=== PATIENT | male | born 1935 | race Caucasian/White ===

== ENCOUNTER 2020-11-06 10:44 | Outpatient (CLI) | payer MEDICARE ==
[2020-11-07 01:01] LABS: SARS-CoV-2 PCR by NAA Not Detected (NotDetected)
== END 2020-11-06 10:45 | disposition home or self-care (01) ==
LOC: LABBT 10:44
PROVIDERS: ATTEND Internal Medicine Cardiovascular Disease
DX: Z01.812 Encounter for preprocedural laboratory examination (principal); Z20.822 Contact with and (suspected) exposure to COVID-19
CPT/HCPCS: U0003; U0005

== ENCOUNTER 2020-11-08 06:14 | Day surgery (SDC) | payer MEDICARE ==
[2020-11-07 11:55] VITALS: BMI 28.7
[2020-11-08] MEDS ORDERED: PROPOFOL 200 MG/20 ML VIAL ONE (08:17)
[2020-11-08] MEDS ORDERED: Lidocaine 1% PF 5 ML VIAL ONE (08:17)
== END 2020-11-08 09:45 | disposition home or self-care (01) ==
LOC: SDC 06:14
PROVIDERS: ATTEND Internal Medicine Gastroenterology
PROC: 0DB38ZX Excision of Lower Esophagus, Via Natural or Artificial Opening Endoscopic, Diagnostic (ICD-10-PCS; principal; 2020-11-08)
PROC: 0DJD8ZZ Inspection of Lower Intestinal Tract, Via Natural or Artificial Opening Endoscopic (ICD-10-PCS; 2020-11-08)
DX: R19.5 Other fecal abnormalities (principal); D64.9 Anemia, unspecified; K44.9 Diaphragmatic hernia without obstruction or gangrene; K57.30 Diverticulosis of large intestine without perforation or abscess without bleeding; K64.8 Other hemorrhoids; T70.29XA Other effects of high altitude, initial encounter; M19.90 Unspecified osteoarthritis, unspecified site; I10 Essential (primary) hypertension; N28.9 Disorder of kidney and ureter, unspecified; E78.00 Pure hypercholesterolemia, unspecified; Z86.010 Personal history of colon polyps; Z91.041 Radiographic dye allergy status; Z79.899 Other long term (current) drug therapy; Z95.5 Presence of coronary angioplasty implant and graft; Z86.16 Personal history of COVID-19; Z87.19 Personal history of other diseases of the digestive system; X58.XXXA Exposure to other specified factors, initial encounter
CPT/HCPCS: 43239; G0121; 88305; J2704

== ENCOUNTER 2021-04-22 08:25 | Outpatient (CLI) | payer MEDICARE ==
[2021-04-22] MEDS ORDERED: Iopamidol 370 76% 100 ML VIAL ONE (11:38)
== END 2021-04-22 08:26 | disposition home or self-care (01) ==
LOC: CT 08:25
PROVIDERS: ATTEND Specialist
DX: T82.330D Leakage of aortic (bifurcation) graft (replacement), subsequent encounter (principal); Z86.79 Personal history of other diseases of the circulatory system
CPT/HCPCS: 74174; Q9967

== ENCOUNTER 2023-12-01 20:15 | Inpatient (IN) | payer MEDICARE ==
[2023-12-01 20:47] LABS: #Basophils 0.03 10x3/uL (0.0-0.2); %Basophils 0.6 % (0.0-1.0); %Eosinophils 3.8 % (0.0-10.0); %Lymphocytes 20.9 % (21.0-51.0); %Monocytes 9.1 % (0.0-10.0); %Neutrophils 65.4 % (42.0-75.0); Hemoglobin 13.7 g/dL (14.0-18.0); Mean Corpuscular HGB CONC 34.3 g/dL (32.0-36.0); Mean Corpuscular Hemoglobin 32.3 pg (27.0-31.0); Mean Corpuscular Volume 94.3 fL (78.0-98.0); Mean Platelet Volume 10.6 fL (7.4-10.4); Platelet Count 158 10x3/uL (130-400); RBC Distribution Width 12.8 % (11.5-14.5); Red Blood Cell (RBC) Count 4.24 mill/uL (4.70-6.10)
[2023-12-01 21:00] LABS: ALT (SGPT) 12 U/L (8-55); AST (SGOT) 12 U/L (5-34); Albumin 3.8 g/dL (3.4-4.8); Alkaline Phosphatase 60 U/L (40-110); Anion Gap 14 mmol/L (10-20); Calc. Creatinine Clearance 0 mL/min (70-130); Calcium 9.4 mg/dL (7.8-10.44); Carbon Dioxide 20 mmol/L (23-31); Chloride 110 mmol/L (98-107); Estimated GFR 84; Globulin 2.8 g/dL (2.4-3.5); Glucose 114 mg/dL (83-110); Potassium 3.8 mmol/L (3.5-5.1); Protein, Total 6.6 g/dL (5.8-8.1); Sodium 140 mmol/L (136-145)
[2023-12-01 21:06] LABS: Troponin I Less than 0.010 ng/mL (< 0.028)
[2023-12-01 21:17] LABS: BUN (Urea Nitrogen) 15 mg/dL (8.4-25.7)
[2023-12-02] MEDS ORDERED: Ondansetron ODT 4 MG TAB PO PRN (00:19)
[2023-12-02] MEDS ORDERED: Pantoprazole DR 40 MG TAB PO SCH (00:30)
[2023-12-02] MEDS ORDERED: hydrALAZINE 25 MG TAB ONE (00:31)
[2023-12-02 01:43] LABS: Troponin I Less than 0.010 ng/mL (< 0.028)
[2023-12-02] MEDS ORDERED: Senokot S 8.6-50 MG TAB PO PRN (01:54)
[2023-12-02 03:54] LABS: #Basophils 0.03 10x3/uL (0.0-0.2); %Basophils 0.7 % (0.0-1.0); %Eosinophils 5.2 % (0.0-10.0); %Lymphocytes 21.2 % (21.0-51.0); %Monocytes 11.7 % (0.0-10.0); %Neutrophils 60.7 % (42.0-75.0); Hematocrit 38.8 % (42.0-52.0); Hemoglobin 13.3 g/dL (14.0-18.0); Mean Corpuscular HGB CONC 34.3 g/dL (32.0-36.0); Mean Corpuscular Hemoglobin 32.4 pg (27.0-31.0); Mean Corpuscular Volume 94.4 fL (78.0-98.0); Mean Platelet Volume 10.7 fL (7.4-10.4); Platelet Count 157 10x3/uL (130-400); RBC Distribution Width 12.7 % (11.5-14.5); Red Blood Cell (RBC) Count 4.11 mill/uL (4.70-6.10)
[2023-12-02] MEDS: Sucralfate 1 GM/10 ML UDCUP PO SCH (04:06)
[2023-12-02 04:12] LABS: ALT (SGPT) 13 U/L (8-55); AST (SGOT) 12 U/L (5-34); Albumin 3.6 g/dL (3.4-4.8); Alkaline Phosphatase 52 U/L (40-110); Anion Gap 12 mmol/L (10-20); BUN (Urea Nitrogen) 14 mg/dL (8.4-25.7); Calc. Creatinine Clearance 0 mL/min (70-130); Calcium 9.2 mg/dL (7.8-10.44); Carbon Dioxide 22 mmol/L (23-31); Chloride 109 mmol/L (98-107); Estimated GFR 84; Globulin 2.7 g/dL (2.4-3.5); Glucose 118 mg/dL (83-110); Potassium 3.4 mmol/L (3.5-5.1); Protein, Total 6.3 g/dL (5.8-8.1); Sodium 140 mmol/L (136-145)
[2023-12-02 04:15] LABS: Troponin I Less than 0.010 ng/mL (< 0.028)
[2023-12-02] MEDS ORDERED: Labetalol HCl 100 MG/20 ML VIAL ONE (04:44)
[2023-12-02] MEDS: Labetalol HCl 100 MG/20 ML VIAL SLOW IVP PRN (04:47)
[2023-12-02] MEDS ORDERED: Sucralfate 1 GM/10 ML UDCUP ONE ×2 (08:01→11:59)
[2023-12-02] MEDS ORDERED: Apixaban 5 MG TAB ONE (08:02)
[2023-12-02] MEDS ORDERED: Pantoprazole DR 40 MG TAB ONE (08:02)
[2023-12-02] MEDS ORDERED: Tamsulosin HCl 0.4 MG CAP ONE (08:02)
[2023-12-02] MEDS: Sucralfate 1 GM TAB PO SCH (08:28)
[2023-12-02] MEDS: Tamsulosin HCl 0.4 MG CAP PO SCH (08:28)
[2023-12-02] MEDS: Apixaban 5 MG TAB PO SCH (08:28)
[2023-12-02] MEDS: Pantoprazole DR 40 MG TAB PO SCH (08:29)
[2023-12-02] MEDS ORDERED: Metoprolol Tartrate 25 MG TAB PO SCH (09:00)
[2023-12-02] MEDS ORDERED: Metoprolol Tartrate 25 MG TAB ONE (09:58)
[2023-12-02] MEDS: Metoprolol Tartrate 25 MG TAB PO SCH ×2 (10:00→20:26)
[2023-12-02] MEDS ORDERED: niCARdipine 25 MG/10 ML SDV ONE (10:44)
[2023-12-02 10:46] VITALS: BMI 27.5
[2023-12-02] MEDS: niCARdipine 25 MG in Sodium Chloride 0.9% 250 ML 250 ML IVPB SCH (10:57)
[2023-12-02] MEDS: Sotalol HCl 80 MG TAB PO SCH (11:25)
[2023-12-02] MEDS: Amlodipine 10 MG TAB PO SCH (17:57)
[2023-12-02] MEDS: Apixaban 2.5 MG TAB PO SCH (20:26)
[2023-12-02] MEDS: Rosuvastatin 20 MG TAB PO SCH (20:30)
[2023-12-02] MEDS ORDERED: Rosuvastatin 20 MG TAB PO SCH (21:00)
[2023-12-03] MEDS: Acetaminophen 325 MG TAB PO PRN (02:09)
[2023-12-03 05:00] LABS: ALT (SGPT) 11 U/L (8-55); AST (SGOT) 12 U/L (5-34); Albumin 3.4 g/dL (3.4-4.8); Alkaline Phosphatase 53 U/L (40-110); Anion Gap 12 mmol/L (10-20); BUN (Urea Nitrogen) 17 mg/dL (8.4-25.7); Bilirubin, Total 0.9 mg/dL (0.2-1.2); Calc. Creatinine Clearance 80 mL/min (70-130); Calcium 8.9 mg/dL (7.8-10.44); Carbon Dioxide 21 mmol/L (23-31); Chloride 107 mmol/L (98-107); Estimated GFR 82; Globulin 2.5 g/dL (2.4-3.5); Glucose 124 mg/dL (83-110); Potassium 3.6 mmol/L (3.5-5.1); Protein, Total 5.9 g/dL (5.8-8.1); Sodium 136 mmol/L (136-145)
[2023-12-03 05:02] LABS: #Basophils Less than 0.03 10x3/uL (0.0-0.2); %Basophils 0.5 % (0.0-1.0); %Eosinophils 4.6 % (0.0-10.0); %Lymphocytes 17.9 % (21.0-51.0); %Monocytes 11.2 % (0.0-10.0); %Neutrophils 65.3 % (42.0-75.0); Hematocrit 38.1 % (42.0-52.0); Hemoglobin 13.2 g/dL (14.0-18.0); Mean Corpuscular HGB CONC 34.6 g/dL (32.0-36.0); Mean Corpuscular Hemoglobin 32.6 pg (27.0-31.0); Mean Corpuscular Volume 94.1 fL (78.0-98.0); Mean Platelet Volume 10.9 fL (7.4-10.4); Platelet Count 165 10x3/uL (130-400); RBC Distribution Width 12.8 % (11.5-14.5); Red Blood Cell (RBC) Count 4.05 mill/uL (4.70-6.10)
[2023-12-03] MEDS: Amlodipine 10 MG TAB PO SCH (10:08)
[2023-12-03] MEDS: Lisinopril 10 MG TAB PO SCH (10:12)
[2023-12-03] MEDS: [UNRECOGNIZED DRUG - OTHER] PO SCH (12:16)
[2023-12-03] MEDS ORDERED: Lisinopril 10 MG TAB PO SCH (18:45)
[2023-12-03] MEDS ORDERED: Lisinopril 20 MG TAB PO SCH (19:00)
[2023-12-04 06:08] LABS: #Basophils Less than 0.03 10x3/uL (0.0-0.2); %Basophils 0.4 % (0.0-1.0); %Lymphocytes 18.4 % (21.0-51.0); Hematocrit 39.5 % (42.0-52.0); Hemoglobin 13.8 g/dL (14.0-18.0); Mean Corpuscular HGB CONC 34.9 g/dL (32.0-36.0); Mean Corpuscular Hemoglobin 31.7 pg (27.0-31.0); Mean Corpuscular Volume 90.8 fL (78.0-98.0); Mean Platelet Volume 11.3 fL (7.4-10.4); Platelet Count 163 10x3/uL (130-400); RBC Distribution Width 12.8 % (11.5-14.5); Red Blood Cell (RBC) Count 4.35 mill/uL (4.70-6.10)
[2023-12-04 06:31] LABS: ALT (SGPT) 12 U/L (8-55); AST (SGOT) 11 U/L (5-34); Albumin 3.3 g/dL (3.4-4.8); Alkaline Phosphatase 52 U/L (40-110); Anion Gap 9 mmol/L (10-20); BUN (Urea Nitrogen) 17 mg/dL (8.4-25.7); Bilirubin, Total 0.9 mg/dL (0.2-1.2); Calc. Creatinine Clearance 82 mL/min (70-130); Carbon Dioxide 22 mmol/L (23-31); Chloride 109 mmol/L (98-107); Estimated GFR 83; Globulin 2.6 g/dL (2.4-3.5); Glucose 136 mg/dL (83-110); Potassium 3.4 mmol/L (3.5-5.1); Protein, Total 5.9 g/dL (5.8-8.1); Sodium 137 mmol/L (136-145)
[2023-12-04] MEDS: Spironolactone 25 MG TAB PO SCH (08:55)
[2023-12-04] MEDS: Lisinopril 10 MG TAB PO SCH (08:55)
[2023-12-04] MEDS ORDERED: Lisinopril 10 MG TAB PO SCH ×2 (09:00)
[2023-12-04 09:12] VITALS: BP 132/78
[2023-12-04 10:09] VITALS: TEMP 97.5
[2023-12-04] MEDS ORDERED: Amlodipine 10 MG TAB PO SCH (21:00)
[2023-12-04] MEDS ORDERED: Metoprolol Tartrate 25 MG TAB PO SCH (21:00)
== END 2023-12-04 14:20 | disposition home or self-care (01) | DRG 305 ==
LOC: ERS 20:15 → ERHOLD 23:04 → OBSVTOIN 12-02 15:56 → CCU 12-02 17:28
PROVIDERS: ADMIT Family Medicine; ATTEND Family Medicine
DX: I16.0 Hypertensive urgency (principal); R07.89 Other chest pain; K21.9 Gastro-esophageal reflux disease without esophagitis; I10 Essential (primary) hypertension; E78.5 Hyperlipidemia, unspecified; I48.0 Paroxysmal atrial fibrillation; I25.10 Atherosclerotic heart disease of native coronary artery without angina pectoris; N40.0 Benign prostatic hyperplasia without lower urinary tract symptoms; Z96.651 Presence of right artificial knee joint; K86.89 Other specified diseases of pancreas; E87.6 Hypokalemia; Z91.041 Radiographic dye allergy status; Z79.899 Other long term (current) drug therapy; Z79.01 Long term (current) use of anticoagulants; Z79.02 Long term (current) use of antithrombotics/antiplatelets; Z79.84 Long term (current) use of oral hypoglycemic drugs; Z95.5 Presence of coronary angioplasty implant and graft
CPT/HCPCS: 36415; 71045; 80053; 84484; 85025; 93005; J7050

== ENCOUNTER 2023-12-23 08:34 | Outpatient (CLI) | payer MEDICARE | END 2023-12-23 08:35 | disposition home or self-care (01) | LOC: SCSMRI 08:34 | PROVIDERS: ATTEND Internal Medicine Gastroenterology | DX: K80.20 Calculus of gallbladder without cholecystitis without obstruction (principal); K86.81 Exocrine pancreatic insufficiency; R10.13 Epigastric pain; K86.3 Pseudocyst of pancreas; K76.89 Other specified diseases of liver | CPT/HCPCS: 74183; 76376 ==